=== PATIENT | female | born 1990 | race African-American/Black ===

== ENCOUNTER 2017-03-13 10:25 | Emergency (ER) | payer SELFPAY ==
[~2017-03-13] VITALS: Ht 160 cm; Wt 50.0 kg
[2017-03-13 10:29] VITALS: BP 140/72; PULSE 70; RESP 14; TEMP 98.2; O2SAT 99
[2017-03-13] MEDS ORDERED: SODIUM CHLORIDE 0.9% FLUSH 10 ML FLUSH IV FLUSH PRN (11:00)
--- NOTE | 2017-03-13 11:12 | PD ---
HPI Chief Complaint: Abdominal Pain Time Seen by Provider: 10:50 Travel History International Travel<30 days: No Contact w/Intl Traveler<30days: No Traveled to known affect area: No History of Present Illness HPI The patient was seen and examined in the presence of the nurse. This patient complains of abdominal pain. Location is right lower quadrant. Duration is 4 hours. Severity is moderate. She denies vaginal discharge or bleeding. She says she is a lesbian and can't be and doesn't have any pelvic infection. No abdominal surgeries. Symptoms have no alleviating factors. No exacerbating factors. No fever PFSH Past Medical History Hx Anticoagulant Therapy: No Asthma: Yes ( A CHILD) Cardiovascular Problems: No Chemotherapy: No Cerebrovascular Accident: No Diabetes: No Diminished Hearing: No Respiratory: No ?: Not LMP: 02/16/17 : 0 Ovarian Cysts: Yes (RUPTURED) Past Surgical History Hysterectomy: No Social History Alcohol Use: No Tobacco Use: No Substance Use: Yes (MARIJUANA) Allergies-Medications (Allergen,Severity, Reaction): Coded Allergies: No Known Allergies (Unverified Adverse Reaction, Unknown, 03/13/17) Reported Meds & Prescriptions Reported Meds & Active Scripts Active No Active Prescriptions or Reported Medications Review of Systems General / Constitutional: No: Fever Eyes: No: Visual changes HENT: No: Headaches Cardiovascular: No: Chest Pain or Discomfort Respiratory: No: Shortness of Breath Gastrointestinal: Positive: Abdominal Pain Genitourinary: No: Dysuria Musculoskeletal: No: Pain Skin: No Rash Neurologic: No: Weakness Psychiatric: No: Depression Endocrine: No: Polydipsia Hematologic/Lymphatic: No: Easy Bruising Physical Exam Narrative GENERAL: Well-nourished, well-developed patient in no apparent distress. SKIN: Focused skin assessment reveals no rash and nodules. Skin is Warm and dry. HEAD: Atraumatic. Normocephalic. EYES: Pupils equal and round. No scleral icterus. No injection or drainage. ENT: No nasal bleeding or discharge. Mucous membranes pink and moist. NECK: Trachea midline. No JVD. CARDIOVASCULAR: Regular rate and rhythm. No murmur appreciated. RESPIRATORY: No accessory muscle use. Clear to auscultation. Breath sounds equal bilaterally. GASTROINTESTINAL: Abdomen soft, right lower quadrant is tender without rebound or guarding, nondistended. Hepatic and splenic margins not palpable. MUSCULOSKELETAL: No obvious deformities. No clubbing. No cyanosis. No edema. NEUROLOGICAL: Awake and alert. No obvious cranial nerve deficits. Motor grossly within normal limits. Normal speech. PSYCHIATRIC: Appropriate mood and affect; insight and judgment normal. Data Data Last Documented VS Vital Signs Date Time Temp Pulse Resp B/P (MAP) Pulse Ox O2 Delivery O2 Flow Rate FiO2 03/13/17 10:29 98.2 70 14 140/72 (94) 99 Orders Orders Basic Metabolic Panel (Bmp) (03/13/17 10:58) Complete Blood Count With Diff (03/13/17 10:58) Urinalysis - C+S If Indicated (03/13/17 10:58) Ct Abd/Pel W Iv Contrast(Rout) (03/13/17 10:58) Iv Access Insert/Monitor (03/13/17 10:58) NPO (03/13/17 10:58) Sodium Chloride 0.9% Flush (Ns Flush) (03/13/17 11:00) Ondansetron Inj (Zofran Inj) (03/13/17 12:00) Morphine Inj (Morphine Inj) (03/13/17 12:00) Iohexol 350 Inj (Omnipaque 350 Inj) (03/13/17 12:00) Labs Laboratory Tests Test 03/13/17 11:05 03/13/17 11:15 Urine Color LIGHT-YELLOW Urine Turbidity CLEAR Urine pH 6.5 Urine Specific [place] 1.016 Urine Protein NEG mg/dL Urine Glucose (UA) NEG mg/dL Urine Ketones NEG mg/dL Urine Occult Blood NEG Urine Nitrite NEG Urine Bilirubin NEG Urine Urobilinogen LESS THAN 2.0 MG/DL Urine Leukocyte Esterase NEG Urine Squamous Epithelial Cells 1 /hpf Urine Mucus FEW /lpf Microscopic Urinalysis Comment CULT NOT INDICATED White Blood Count 11.4 TH/MM3 Red Blood Count 5.46 MIL/MM3 Hemoglobin 12.0 GM/DL Hematocrit 38.2 % Mean Corpuscular Volume 70.0 FL Mean Corpuscular Hemoglobin 22.0 PG Mean Corpuscular Hemoglobin Concent 31.4 % Red Cell Distribution Width 14.4 % Platelet Count 241 TH/MM3 Mean Platelet Volume 8.4 FL Neutrophils (%) (Auto) 61.8 % Lymphocytes (%) (Auto) 31.3 % Monocytes (%) (Auto) 4.7 % Eosinophils (%) (Auto) 1.7 % Basophils (%) (Auto) 0.5 % Neutrophils # (Auto) 7.0 TH/MM3 Lymphocytes # (Auto) 3.6 TH/MM3 Monocytes # (Auto) 0.5 TH/MM3 Eosinophils # (Auto) 0.2 TH/MM3 Basophils # (Auto) 0.1 TH/MM3 CBC Comment DIFF FINAL Differential Comment Blood Urea Nitrogen 12 MG/DL Creatinine 0.82 MG/DL Random Glucose 88 MG/DL Calcium Level 8.6 MG/DL Sodium Level 139 MEQ/L Potassium Level 3.9 MEQ/L Chloride Level 109 MEQ/L Carbon Dioxide Level 20.8 MEQ/L Anion Gap 9 MEQ/L Estimat Glomerular Filtration Rate 104 ML/MIN [facility] Medical Decision Making Medical Screen Exam Complete: Yes Emergency Medical Condition: Yes Medical Record Reviewed: Yes Differential Diagnosis Appendicitis, ectopic , ovarian cystic disease Narrative Course I have reviewed the patient's electronic medical record. IV placed CBC is normal Metabolic profile is normal Urinalysis is clean Urine is negative CT abdomen and pelvis with IV contrast done to evaluate for appendicitis. Her appendix looks normal. However there is a decent size mass that the radiologist feels is consistent with a teratoma. I reviewed this in detail with the patient and suggested she follow up with [facility] as soon as she can arrange to discuss treatment and removal. I gave her injection of morphine and Zofran for symptom relief Tramadol prescribed Diagnosis Primary Impression: Acute pelvic pain, female Additional Impression: Teratoma of right ovary Additional Instructions: The patient was advised to follow up with [facility] physician . The patient was warned about potential sedation for the medications they will receive on prescription. Med/Other Pt SpecificInfo: Prescription(s) given Scripts Tramadol (Tramadol) 50 Mg Tab 50 MG PO Q6H Y for PAIN, #20 TAB 0 Refills Prov: Yousuf Galaviz MD 03/13/17 Disposition: 01 DISCHARGE HOME Condition: Stable Yousuf Galaviz MD Mar 13, 2017 11:12
[2017-03-13 11:22] LABS: BASOPHIL # 0.1 TH/MM3 (0-0.2); BASOPHIL % 0.5 % (0.0-2.0); EOSINOPHIL # 0.2 TH/MM3 (0-0.4); EOSINOPHIL % 1.7 % (0.0-4.0); HEMATOCRIT 38.2 % (35.0-46.0); HEMO FLAGS DIFF FINAL; LYMPH % 31.3 % (9.0-44.0); LYMPHOCYTE # 3.6 TH/MM3 (1.0-4.8); MEAN CORPUSCULAR HGB CONC 31.4 % (32.0-36.0); MONO % 4.7 % (0.0-8.0); NEUT % 61.8 % (16.0-70.0); PLATELET COUNT 241 TH/MM3 (150-450); RED BLOOD COUNT 5.46 MIL/MM3 (4.00-5.30); RED CELL DISTRIBUTION WIDTH 14.4 % (11.6-17.2); WHITE BLOOD COUNT 11.4 TH/MM3 (4.0-11.0)
[2017-03-13 11:24] LABS: BLOOD, URINE NEG (NEG); COMMENT (UR) CULT NOT INDICATED; CULTURE IF INDICATED CULT NOT INDICATED; GLUCOSE,URINE NEG (NEG); KETONE, URINE NEG (NEG); MUCUS URINE FEW /lpf (OCC); NITRITE,URINE NEG (NEG); PH, URINE 6.5 (5.0-8.5); SQUAMOUS EPITHELIAL CELL URINE 1 /hpf (0-5); URINE COLOR LIGHT-YELLOW (YELLW/STRAW)
[2017-03-13 11:36] LABS: BICARBONATE 20.8 MEQ/L (21.0-32.0); POTASSIUM 3.9 MEQ/L (3.5-5.1)
[2017-03-13] MEDS ORDERED: IOHEXOL 350 MG/ML 10 ML VIAL (for RAD DIAG) IVCONTRAST ONE (12:00)
[2017-03-13] MEDS ORDERED: MORPHINE SULFATE 4 MG/ML INJ IV PUSH ONE (12:00)
[2017-03-13] MEDS ORDERED: ONDANSETRON HCL 4 MG/2 ML VIAL IV ONE (12:00)
--- NOTE | 2017-03-13 12:31 | RADRPT ---
EXAM DATE/TIME: 03/13/2017 11:56 [facility] COMPARISON: No previous studies available for comparison. INDICATIONS : Right lower abdomen pain today. IV CONTRAST: 71 cc Omnipaque 350 (iohexol) IV ORAL CONTRAST: No oral contrast ingested. RADIATION DOSE: 6.64 CTDIvol (mGy) MEDICAL HISTORY : None SURGICAL HISTORY : None. ENCOUNTER: Initial ACUITY: 1 day PAIN SCALE: 8/10 LOCATION: Right lower quadrant TECHNIQUE: Volumetric scanning of the abdomen and pelvis was performed. Using automated exposure control and ad justment of the mA and/or kV according to patient size, radiation dose was kept as low as reasonably achievable to obtain optimal diagnostic quality images. DICOM format image data is available electro nically for review and comparison. FINDINGS: LOWER LUNGS: The visualized lower lungs are clear. LIVER: Homogeneous density without lesion. There is no dilation of the biliary tree. No calcified gallston es. SPLEEN: Normal size without lesion. PANCREAS: Within normal limits. KIDNEYS: Normal in size and shape. There is no mass, stone or hydronephrosis. ADRENAL GLANDS: Within normal limits. VASCULAR: There is no aortic aneurysm. BOWEL/MESENTERY: Blind ending structure near the cecum likely reflects an appendix and is normal in appearance. There is no significant inflammatory change in the pericecal region or vesical adenopathy. Bowel appears un remarkable. ABDOMINAL WALL: Within normal limits. RETROPERITONEUM: There is no lymphadenopathy. BLADDER: No wall thickening or mass. REPRODUCTIVE: There is a large heterogeneous anterior pelvic mass measuring 7.1 x 9.2 cm. This mass contains fat, s oft tissue density, and bone density centrally and is consistent with a mature cystic ovarian teratom a. INGUINAL: There is no lymphadenopathy or hernia. MUSCULOSKELETAL: Within normal limits for patient age. CONCLUSION: 1. Normal appearing appendix. 2. 7.1 x 9.2 cm anterior pelvic heterogeneous mass with imaging features consistent with a mature cys tic teratoma. Edward Tripp MD on March 13, 2017 at 12:22 Board Certified Radiologist. This report was verified electronically.
[2017-03-13] MEDS ORDERED: TRAM50TA PO (13:01)
== END 2017-03-13 13:27 | disposition home or self-care (01) ==
LOC: NEPE 10:25
DX: R10.2 Pelvic and perineal pain (principal); D27.0 Benign neoplasm of right ovary
CPT/HCPCS: 74177; 80048; 81001; 85025; 96374; 96375; 99285; J2270; J2405; Q9967